=== PATIENT | male | born 2000 | race Caucasian/White ===

== ENCOUNTER 2024-06-21 16:07 | Emergency (ER) | payer OTHER, SELFPAY ==
[2024-06-21 16:09] VITALS: BP 154/109
--- NOTE | 2024-06-21 18:32 | ED.GENMED ---
History of Present Illness
General
Chief Complaint: Musculo-Skeletal Complaint
Source: patient
Exam Limitations: none
Time Seen by Provider: 06/21/24 17:56
Nursing documentation reviewed up to this point in time: agreed with
History of Present Illness
History of Present Illness:
23 y/o R hand dominant M
h/o depression, ADHD
from [place]
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
pt did not tell his father and was covering it up and treating it himself for the past 5 days
he has not had any imaging or evlautaion until now
he has no fever, streaking redness, significant swelling, weakness
he is a smoker
tetanus was updated at
Past History
Past History
ED Past Medical History: None
ED Past Surgical History: None
Social History
Tobacco: Non-smoker
Alcohol: None
Drug: Former user
Review of Systems
Review of Systems
Allergies reviewed?: Yes
All Other Systems: Not applicable
Phy Exam
Physical Exam
Physical Exam:
GENERAL: Alert , in no apparent distress, comfortable at rest
HEAD: NCAT
NEUROLOGICAL: Alert and oriented, no focal neuro deficits, , 5/5 strength, sensation intact, ambulation slight limp right leg
SKIN: Warm and dry, partial distal fingertip amputation distal phaalnx, opened wound, macerated tissue, no signifncatn drainage/erythema
MUSCULOSKELETAL: L 4th finger distal fingertip amputation, irregular wound,the bone is still covered with some tissue; and with macerated skin; no obvious infection
able to extend and flex
PSYCH: Normal and appropriate interaction.
Course
Orders/Labs/Results
Orders:
Orders
06/21/24 18:19
CR Finger(s)/thumb Min 2 Vw Lt Urgent
Comment:
Reason For Exam: left 4th finger amputation
06/21/24 18:29
Cephalexin Monohydrate [Keflex] 500 mg PO NOW STA
Sulfamethox./Trimethoprim Ds [Bactrim Ds 800 mg/160 mg] 1 tablet PO NOW STA
Vital Signs
Initial and Last Documented VS:
Initial Vital Signs
Temp Pulse Resp BP Pulse Ox
98.3 F 80 16 154/109 98
06/21/24 16:09 06/21/24 16:09 06/21/24 16:09 06/21/24 16:09 06/21/24 16:09
Last Documented Vital Signs
Temp Pulse Resp BP Pulse Ox
98.3 F 80 16 154/109 98
06/21/24 16:09 06/21/24 16:09 06/21/24 16:06/21/24 16:09 06/21/24 16:09
MDM/Problems Addressed
Differential Diagnosis Includes:
open fracture, infection, osteo
MDM/Problems Addressed:
23 y/o M
fingertip amputation 5 days ago
from [place]
came from urgent care ater father saw his wound
he has some pain but it is controlled with ibuprfoen
no fever, chillls, swelling, redness
has been cleaning it daily and dressing it with neosporin and nonstick dressing
on exam there is an aputation
the bone is not directly visible as it is still covered with some tissue
no obvious infection
no streaking redness
no flexor tenosynovitis
some tenderness
teatnus already updated
xray shows the partial distal phalanx amputatkiion
d/w ed attending IV abx vs oral
since it is not aobivously infected, no sig utility in IV abx
bactrim, keflex
xeroform dressing
hand f/u enocuraged
*Critical Care Note
Total Time (30-74mins, 75-104mins- exclusive of procedures): Not Applicable
ED Attending Note
-
Portions of this chart may have been created with voice recognition software.� Occasional wrong word or��sound alike� substitutions may have occurred due to the inherent limitations of voice recognition software.
Discharge Plan
Departure
Patient Disposition: Home (Routine Discharge)
Date of Disposition: 06/21/24
Time of Disposition: 18:53
Patient with high blood pressure during this ER visit?: No
Condition: Fair
Covid-19: Not Applicable
Discharge Problem:
Amputated finger
Instructions: Amputation of the Finger or Fingertip (DC)
Prescriptions:
New
sulfamethoxazole-trimethoprim [Bactrim DS] 800-160 mg tablet
1 tab PO Q12H Qty: 20 0RF
cephalexin 500 mg capsule
500 mg PO Q8H Qty: 30 0RF
No Action
sertraline 100 MG tablet
100 mg PO DAILY
hydroxyzine pamoate [Vistaril] 50 MG capsule
50 - 100 mg PO HSPRN PRN (Reason: sleep)
lisdexamfetamine [Vyvanse] 30 MG capsule
30 mg PO DAILY
Activity Restrictions/Additional Instructions:
YOU AMPUTATED THE DISTAL THIRD OF YOUR FINGERTIP BONE (LEFT 4TH DISTAL PHALANX)
TAKE KEFLEX 3 TIMES A DAY FOR 10 DAYS AND BACTRIM 2 TIMES A DAY FOR 10 DAYS
KEEP THIS DRESSING ON FOR TODAY AND TOMORROW AND THEN YOU CAN TAKE IT OFF
AND CLEAN ONCE A DAY
APPLY OINTMENT AND NONSTICK DRESSING
YOU SHOULD NOT SOAK THE FINGER IN HYDROGEN PEROXIDE
WATCH FO RINFECTION
YOU NEED TO CALL A HAND SPECIALIST SUNDAY TO BE SEEN
RETURN FOR: SEVERE PAIN, FEVER, DRAINAGE, SWELLING, REDNESS ETC
Interventions
Interventions:
*General Assessment Last Done: 06/21/24 16:09
*Neglect/Abuse Screening Last Done: 06/21/24 16:09
ED- Fall Risk Assessment Last Done: 06/21/24 19:19
*ED COVID-19 Vaccine History Last Done: 06/21/24 16:09
*Nursing Disposition Last Done: 06/21/24 19:19
ED-Musculoskeletal Assessment Last Done: 06/21/24 18:41
Discharge Date and Time
Discharge Date/Time: 06/21/24 19:20
Print Language: [place]
[2024-06-21] MEDS: BACTRIM DS 800 MG/160 MG 1 TABLET PO (19:02)
[2024-06-21] MEDS: KEFLEX 500 MG PO (19:03)
== END 2024-06-21 19:20 | disposition home or self-care (01) ==
LOC: EMR 16:07
PROVIDERS: EMERGENCY PHYSICIAN Student in an Organized Health Care Education/Training Program
DX: S68.625A Partial traumatic transphalangeal amputation of left ring finger, initial encounter (principal); W29.8XXA Contact with other powered hand tools and household machinery, initial encounter; F90.9 Attention-deficit hyperactivity disorder, unspecified type; F32.A Depression, unspecified
CPT/HCPCS: 99283; 73140